=== PATIENT | male | born 2000 | race Caucasian/White ===

== ENCOUNTER 2019-07-15 22:38 | Emergency (ER) | payer SELFPAY ==
[~2019-07-15] VITALS: Ht 180.3 cm; Wt 125.0 kg
[2019-07-15 23:20] LABS: EOS # 0.1 (0.04-0.40); EOS % 1.2 % (0.0-4.0); HEMOGLOBIN 16.4 g/dL (12.5-16.1); MEAN CELL VOLUME 82 fl (78-95); MEAN CORPUSCULAR HEMOGLOBIN 28 pg (26-32); MEAN CORPUSCULAR HGB CONC 34 g/dL (33-37); MEAN PLATELET VOLUME 10.3 fl (7.4-10.4); MONO # 0.9 (0.20-0.80); NEU # 4.4 (1.40-6.50); PLATELET COUNT 291 K/mm3 (130-400); RED BLOOD COUNT 5.88 M/mm3 (4.20-5.60); WHITE BLOOD COUNT 7.4 K/mm3 (4.8-10.8)
[2019-07-15] MEDS ORDERED: GUAIFEN-CODEINE5 ML PO (23:31)
[2019-07-15 23:40] VITALS: BP 139/91
== END 2019-07-15 23:40 | disposition home or self-care (01) ==
LOC: ED 22:38
PROVIDERS: Family Medicine
DX: J06.9 Acute upper respiratory infection, unspecified (principal)

== ENCOUNTER → 2019-10-21 | Outpatient (CLI) | payer SELFPAY ==
[~2019-10-21] MED LIST: GUAIFEN-CODEINE5 ML PO
== END ==
LOC: RAD 08:53
DX: M79.89 Other specified soft tissue disorders (principal)

== ENCOUNTER 2019-11-14 21:31 | Emergency (ER) | payer SELFPAY ==
[~2019-11-14] VITALS: Ht 180.3 cm; Wt 122.7 kg
[2019-11-14 22:25] LABS: EOS # 0.2 (0.04-0.40); EOS % 2.3 % (0.0-4.0); HEMATOCRIT 49.5 % (36.0-47.0); HEMOGLOBIN 17.2 g/dL (12.5-16.1); MEAN CELL VOLUME 81 fl (78-95); MEAN CORPUSCULAR HEMOGLOBIN 28 pg (26-32); MEAN CORPUSCULAR HGB CONC 35 g/dL (33-37); MEAN PLATELET VOLUME 10.3 fl (7.4-10.4); NEU # 4.9 (1.40-6.50); PLATELET COUNT 307 K/mm3 (130-400); WHITE BLOOD COUNT 9.1 K/mm3 (4.8-10.8)
[2019-11-14 22:36] LABS: ALBUMIN 4.5 g/dL (3.5-5.0); POTASSIUM 4.1 mmol/L (3.5-5.1)
[2019-11-14 22:37] LABS: CALCIUM 9.1 mg/dL (8.3-10.5)
[2019-11-14 22:39] LABS: TOTAL PROTEIN 7.5 g/dL (6.4-8.3)
[2019-11-14 22:40] LABS: TOTAL BILIRUBIN 0.4 mg/dL (0.2-1.2)
[2019-11-14] MEDS ORDERED: AZITHROMYCIN 250MGPK PO (23:13)
[2019-11-14] MEDS ORDERED: PEPCID 20MG TAB20 MG PO (23:16)
[2019-11-14 23:36] VITALS: BP 137/87
== END 2019-11-14 23:33 | disposition home or self-care (01) ==
LOC: ED 21:31
PROVIDERS: Nurse Practitioner
DX: K21.9 Gastro-esophageal reflux disease without esophagitis (principal); R07.89 Other chest pain

== ENCOUNTER → 2020-01-10 | Outpatient (CLI) | payer SELFPAY ==
[~2020-01-10] MED LIST changes: +AZITHROMYCIN 250MGPK PO; +PEPCID 20MG TAB20 MG PO
[2020-01-10 11:55] LABS: ALBUMIN 4.4 g/dL (3.5-5.0)
[2020-01-10 11:56] LABS: CALCIUM 8.8 mg/dL (8.3-10.5)
[2020-01-10 11:58] LABS: TOTAL PROTEIN 7.9 g/dL (6.4-8.3)
[2020-01-10 11:59] LABS: TOTAL BILIRUBIN 1.1 mg/dL (0.2-1.2)
[2020-01-10 12:11] LABS: EOS # 0.1 (0.04-0.40); EOS % 1.9 % (0.0-4.0); HEMATOCRIT 49.3 % (36.0-47.0); HEMOGLOBIN 16.4 g/dL (12.5-16.1); LYMPH# 2.2 (1.50-4.00); MEAN CELL VOLUME 83 fl (78-95); MEAN CORPUSCULAR HEMOGLOBIN 28 pg (26-32); MEAN CORPUSCULAR HGB CONC 33 g/dL (33-37); MEAN PLATELET VOLUME 10.6 fl (7.4-10.4); MONO # 0.7 (0.20-0.80); NEU # 3.3 (1.40-6.50); PLATELET COUNT 288 K/mm3 (130-400); RED BLOOD COUNT 5.94 M/mm3 (4.20-5.60); RED CELL DISTRIBUTION WIDTH 13.1 % (11.5-14.5); WHITE BLOOD COUNT 6.3 K/mm3 (4.8-10.8)
== END ==
LOC: LAB 11:28
PROVIDERS: Nurse Practitioner Family
DX: R10.9 Unspecified abdominal pain (principal)

== ENCOUNTER → 2020-03-24 | Outpatient (CLI) | payer SELFPAY | LOC: LAB 15:18 | DX: R50.9 Fever, unspecified (principal); R09.81 Nasal congestion; R51 Headache; R53.83 Other fatigue; R11.0 Nausea; Z20.828 Contact with and (suspected) exposure to other viral communicable diseases ==

== ENCOUNTER → 2021-02-14 | Outpatient (CLI) | payer BC | LOC: LAB 18:21 | DX: Z20.822 Contact with and (suspected) exposure to COVID-19 (principal) ==

== ENCOUNTER 2021-05-22 22:01 | Emergency (ER) | payer SELFPAY ==
[~2021-05-22] VITALS: Ht 180.3 cm; Wt 127.3 kg
[2021-05-23 00:47] VITALS: BP 123/86
== END 2021-05-23 00:47 | disposition home or self-care (01) ==
LOC: ED 22:01
DX: J06.9 Acute upper respiratory infection, unspecified (principal); Z20.822 Contact with and (suspected) exposure to COVID-19

== ENCOUNTER → 2021-05-29 | Outpatient (CLI) | payer OTHER | LOC: LAB 13:52 | DX: Z20.822 Contact with and (suspected) exposure to COVID-19 (principal) ==

== ENCOUNTER → 2022-01-16 | Outpatient (CLI) | payer SELFPAY | LOC: RAD 09:05 | DX: M54.50 Low back pain, unspecified (principal); M54.2 Cervicalgia; M54.6 Pain in thoracic spine; Z87.828 Personal history of other (healed) physical injury and trauma ==